=== PATIENT | male | born 1990 | race Two or more races ===

== ENCOUNTER → 2020-09-25 08:00 | Outpatient (CLI) | payer OTHER ==
[~2020-09-25 08:00] MED LIST: FORTAMET1000 MG PO; GLIPIZIDE XL10 MG PO; HUMALOG JU100 UNIT/1; LANTUS SOL100 UNIT/1; VASOTEC2.5 MG PO
== END | disposition home or self-care (01) ==
LOC: ADM 07:30 → LAB 08:00 → CIR.AMB 09-30 05:26 → EDSTATUS 09-30 07:30 → CIR.AMB 09-30 08:30
PROVIDERS: ATTEND Urology
DX: Z20.818 Contact with and (suspected) exposure to other bacterial communicable diseases (principal); Z20.828 Contact with and (suspected) exposure to other viral communicable diseases

== ENCOUNTER → 2020-09-30 09:58 | Outpatient (CLI) | payer OTHER | END | disposition home or self-care (01) | LOC: LAB 09:58 | PROVIDERS: ATTEND Urology | DX: R35.0 Frequency of micturition (principal) ==

== ENCOUNTER → 2020-10-02 09:46 | Outpatient (CLI) | payer OTHER | END | disposition home or self-care (01) | LOC: LAB 09:46 | PROVIDERS: ATTEND Internal Medicine | DX: I10 Essential (primary) hypertension (principal); M54.5 Low back pain; Z01.810 Encounter for preprocedural cardiovascular examination; E10.3399 Type 1 diabetes mellitus with moderate nonproliferative diabetic retinopathy without macular edema, unspecified eye ==

== ENCOUNTER 2020-10-24 08:00 | Outpatient (CLI) | payer OTHER ==
[~2020-10-24 08:00] MED LIST changes: -HUMALOG JU100 UNIT/1; -LANTUS SOL100 UNIT/1; -VASOTEC2.5 MG PO
[2020-10-24] MEDS ORDERED: LANTUS SOL100 UNIT/1 (10:32)
[2020-10-24] MEDS ORDERED: HUMALOG JU100 UNIT/1 (10:32)
[2020-10-24] MEDS ORDERED: VASOTEC2.5 MG PO (10:33)
== END 2020-10-24 14:16 | disposition home or self-care (01) ==
LOC: LAB 08:00 → CIR.AMB 10-28 07:45 → EDSTATUS 10-28 07:45
PROVIDERS: ATTEND Urology
DX: U07.1 COVID-19 (principal); N47.1 Phimosis

== ENCOUNTER 2022-12-09 11:18 | Outpatient (CLI) | payer OTHER ==
[~2022-12-09 11:18] MED LIST changes: +HUMALOG JU100 UNIT/1; +LANTUS SOL100 UNIT/1; +VASOTEC2.5 MG PO
[2022-12-09 12:30] LABS: MYCOPLASMA PNEUMONIAE IGM NON REACTIVE (NO REACTIVE)
== END 2022-12-09 11:19 | disposition home or self-care (01) ==
LOC: LAB 11:18
PROVIDERS: ATTEND Internal Medicine
DX: Z20.822 Contact with and (suspected) exposure to COVID-19 (principal); J09.X2 Influenza due to identified novel influenza A virus with other respiratory manifestations; A49.3 Mycoplasma infection, unspecified site; Z20.828 Contact with and (suspected) exposure to other viral communicable diseases

== ENCOUNTER → 2024-03-12 | Emergency (ER) | payer OTHER ==
[~2024-03-12] VITALS: Ht 180.3 cm; Wt 72.6 kg
[~2024-03-12] MED LIST changes: +DIABETIC TUSSI118 M3 PO; +GUAIFENESIN/DEXTROMETHORPHAN 10ML BLIST.PACK PO ONE; +INTESTINEX680 M1 PO
[2024-03-12 17:40] LABS: HEMATOCRIT 43.4 % (39.0-48.0); HEMOGLOBIN 15.2 g/dL (13-16.00); MEAN CELL VOLUME 88.1 fL (80.0-100.00); MEAN CORPUSCULAR HEMOGLOBIN 30.8 pg (27.00-32.0); PLATELET COUNT 309 K/uL (150-450); RED BLOOD COUNT 4.93 M/uL (4.00-6.00); RED CELL DISTRIBUTION WIDTH 13.4 % (11.5-14.5)
== END | disposition home or self-care (01) ==
LOC: ER 13:15
PROVIDERS: General Practice
DX: J06.9 Acute upper respiratory infection, unspecified (principal); Z20.822 Contact with and (suspected) exposure to COVID-19; I10 Essential (primary) hypertension; E11.9 Type 2 diabetes mellitus without complications; Z79.4 Long term (current) use of insulin